=== PATIENT | female | born 1965 | race Caucasian/White ===

== ENCOUNTER 2024-03-29 13:51 | Inpatient (IN) | payer MEDICAID, MEDICARE ==
[~2024-03-29] VITALS: Ht 165.1 cm; Wt 91.8 kg
[2024-03-29 14:29] LABS: COVID AG,FIA SOURCE NASAL SWAB
[2024-03-29 14:33] LABS: BASOPHILS % (AUTO) 0.7 % (0.0-2.0); EOSINOPHILS % (AUTO) 2.5 % (1.0-6.0); HEMATOCRIT 42.1 % (36-46); HEMOGLOBIN 14.2 g/dL (12.0-16.0); LYMPHOCYTES # (AUTO) 1.8 K/uL (1.0-4.8); LYMPHOCYTES % (AUTO) 30.5 % (22.0-44.0); MEAN CORPUSCULAR HEMOGLOBIN 32.8 pg (26.0-34.0); MEAN CORPUSCULAR HGB CONC 33.6 G/dL (31.0-37.0); MEAN CORPUSCULAR VOLUME 98 fL (80-100); MONOCYTES # (AUTO) 0.3 K/uL (0.1-1.0); NEUTROPHILS # (AUTO) 3.7 K/uL (1.8-7.7); NEUTROPHILS % (AUTO) 61.3 % (40.0-70.0); PLATELET COUNT (AUTO) 243 K/uL (150-450); RED BLOOD CELL COUNT(AUTO) 4.32 MIL/uL (4.00-5.20); RED CELL DISTRIBUTION WIDTH 13.8 % (11.5-14.5)
[2024-03-29 14:39] LABS: ALCOHOL, URINE DRUG SCREEN POSITIVE (NEGATIVE); AMPHET/METH SCREEN,URINE NEGATIVE (NEGATIVE); BARBITURATE SCREEN, URINE NEGATIVE (NEGATIVE); BENZODIAZEPINES SCREEN,URINE NEGATIVE (NEGATIVE); CANNABINOID SCREEN,URINE NEGATIVE (NEGATIVE); COCAINE SCREEN,URINE NEGATIVE (NEGATIVE); METHADONE SCREEN, URINE NEGATIVE (NEGATIVE); OPIATE SCREEN,URINE NEGATIVE (NEGATIVE); PHENCYCLIDINE SCREEN,URINE NEGATIVE (NEGATIVE)
[2024-03-29 14:40] LABS: ANION GAP 11 mmol/L (8-16); CALCIUM, TOTAL 8.8 mg/dL (8.8-10.5); CARBON DIOXIDE 24 mmol/L (22-29); CHLORIDE 104 mmol/L (98-107); CREATININE 0.75 mg/dL (0.60-1.30); GLOMERULAR FILTR. RATE CALC > 60 mL/min (>60); GLUCOSE,RANDOM 95 mg/dL (70-110); POTASSIUM 3.7 mmol/L (3.5-5.1); SODIUM SERUM 139 mmol/L (136-145); UREA NITROGEN, BLOOD 8 mg/dL (7-18)
[2024-03-29 14:41] LABS: ALCOHOL, BLOOD (SERUM) 150 mg/dL (0-10)
[2024-03-29 14:59] LABS: SARS-COV2 (COVID) ANTIGEN,FIA Negative (Negative)
[2024-03-29 14:59] LABS: ALANINE AMINOTRANSFERASE 26 U/L (12-78); ALBUMIN 3.7 g/dL (3.4-5.0); ALKALINE PHOSPHATASE 137 U/L (46-116); ASPARTATE AMINOTRANSFERASE 19 U/L (15-37); BILIRUBIN,TOTAL 0.5 mg/dL (0.1-1.0); TOTAL PROTEIN, SERUM 8.3 g/dL (6.4-8.2)
[2024-03-29] MEDS ORDERED: QUEtiapine FUMARATE 100 MG TABLET PO PRN (15:30)
[2024-03-30] VITALS (8 sets, daily range): BP systolic 112–141; BP diastolic 63–89; PULSE 60–78; RESP 17–19; TEMP 96.3–98.8; O2SAT 96
[2024-03-30] MEDS: ZOLPIDEM TARTRATE 10 MG TABLET PO PRN (00:47)
[2024-03-30] MEDS ORDERED: PETROLATUM,WHITE 28 GM JELLY TP PRN (01:00)
[2024-03-30] MEDS ORDERED: OMEPRAZOLE 20 MG CAPSULE PO PRN (01:00)
[2024-03-30] MEDS ORDERED: ONDANSETRON HCL 4 MG TABLET PO PRN (01:00)
[2024-03-30] MEDS ORDERED: BENZOCAINE/MENTHOL LOZENGE PO PRN (01:00)
[2024-03-30] MEDS ORDERED: CloNIDine HCL 0.1 MG TABLET PO PRN (01:00)
[2024-03-30] MEDS ORDERED: LOPERAMIDE HCL 2 MG CAPSULE PO PRN (01:00)
[2024-03-30] MEDS ORDERED: BACITRACIN 28 GM OINTMENT TP PRN (01:00)
[2024-03-30] MEDS ORDERED: MAGNESIUM HYDROXIDE SUSPENSION 30 ML UDCUP PO PRN (01:00)
[2024-03-30] MEDS ORDERED: DOCUSATE SODIUM 100 MG CAPSULE PO PRN (01:00)
[2024-03-30] MEDS ORDERED: ALBUTEROL SULFATE HFA 90 MCG/PUFF 8 GM INHALER IH PRN (01:00)
[2024-03-30] MEDS ORDERED: ACETAMINOPHEN 325 MG TABLET PO PRN (01:00)
[2024-03-30] MEDS ORDERED: MAG HYDROX/ALUMINUM HYD/SIMETH ES 30 ML SUSPENSION UDCUP PO PRN (01:00)
[2024-03-30] MEDS: IBUPROFEN 600 MG TABLET PO PRN (01:27)
[2024-03-30] MEDS: SERTRALINE HCL 50 MG TABLET PO SCH (09:35)
[2024-03-30] MEDS: LORazepam 2 MG TABLET PO PRN (14:23)
[2024-03-31 08:21] VITALS: BP 149/76; PULSE 80; RESP 16; TEMP 98.2; O2SAT 98
[2024-03-31 08:27] LABS: CHOL/HDL RATIO 3.1 (3.9-5.7); FREE T4 (FREE THYROXINE) 0.87 ng/dL (0.76-1.46); THYROID STIMULATING HORMONE 1.44 uIU/mL (0.36-3.74)
[2024-03-31] MEDS: PERMETHRIN 5% 60 GM CREAM TP ONE (16:14)
[2024-03-31 21:31] VITALS: BP 127/60; PULSE 65; RESP 18; TEMP 97.6; O2SAT 97
[2024-04-01 08:06] VITALS: BP 130/74; PULSE 76; RESP 16; TEMP 98; O2SAT 98
[2024-04-01] MEDS ORDERED: SERT-158 PO (13:45)
== END 2024-04-01 15:30 | disposition home or self-care (01) | DRG 751 ==
LOC: EMS 13:51 → B3A 23:48
PROVIDERS: ADMIT Psychiatry & Neurology Psychiatry; ATTEND Psychiatry & Neurology Psychiatry
PROC: GZHZZZZ Group Psychotherapy (ICD-10-PCS; principal; 2024-03-30)
PROC: GZ51ZZZ Individual Psychotherapy, Behavioral (ICD-10-PCS; 2024-03-30)
DX: F33.2 Major depressive disorder, recurrent severe without psychotic features (principal); R45.851 Suicidal ideations; F10.129 Alcohol abuse with intoxication, unspecified; F17.210 Nicotine dependence, cigarettes, uncomplicated; F41.9 Anxiety disorder, unspecified; Z20.822 Contact with and (suspected) exposure to COVID-19; K59.00 Constipation, unspecified; G47.00 Insomnia, unspecified; Y90.9 Presence of alcohol in blood, level not specified; F19.10 Other psychoactive substance abuse, uncomplicated
CPT/HCPCS: 80053; 80061; 80307; 84439; 84443; 85025; G0480

== ENCOUNTER 2025-06-27 15:00 | Inpatient (IN) | payer MEDICAID ==
[~2025-06-27] VITALS: Ht 165.1 cm; Wt 78.1 kg
[~2025-06-27 15:00] MED LIST: SERT-158 PO
[2025-06-27 15:35] LABS: COVID AG,FIA SOURCE NASAL SWAB
[2025-06-27 15:42] LABS: APPEARANCE,URINE CLEAR (CLEAR); GLUCOSE, URINE (UA) NEGATIVE (NEGATIVE); LEUKOCYTE ESTERASE ,URINE NEGATIVE (NEGATIVE); NITRATE,URINE NEGATIVE (NEGATIVE); OCCULT BLOOD,URINE NEGATIVE (NEGATIVE); PH,URINE DRUG SCREEN 5.0 (5.0-8.0); SPECIFIC GRAVITIY, URINE 1.006 (1.003-1.030)
[2025-06-27] MEDS: LORazepam 2 MG/ML VIAL IM ONE (15:45)
[2025-06-27 16:24] LABS: SARS-COV2 (COVID) ANTIGEN,FIA Positive (Negative)
[2025-06-27 16:30] LABS: ALCOHOL, URINE DRUG SCREEN POSITIVE (NEGATIVE); AMPHET/METH SCREEN,URINE POSITIVE (NEGATIVE); BARBITURATE SCREEN, URINE NEGATIVE (NEGATIVE); CANNABINOID SCREEN,URINE NEGATIVE (NEGATIVE); COCAINE SCREEN,URINE NEGATIVE (NEGATIVE); METHADONE SCREEN, URINE NEGATIVE (NEGATIVE)
[2025-06-27] MEDS ORDERED: ZOLPIDEM TARTRATE 10 MG TABLET PO PRN (16:30)
[2025-06-27 17:08] LABS: PLATELET COUNT (AUTO) 271 K/uL (150-450); RED BLOOD CELL COUNT(AUTO) 4.04 MIL/uL (4.00-5.20); RED CELL DISTRIBUTION WIDTH 13.0 % (11.5-14.5); WHITE BLOOD COUNT (AUTO) 4.8 K/uL (4.5-11.0)
[2025-06-27 17:15] LABS: CALCIUM, TOTAL 8.1 mg/dL (8.8-10.5); CREATININE 0.56 mg/dL (0.60-1.30); GLOMERULAR FILTR. RATE CALC > 60 mL/min (>60); GLUCOSE,RANDOM 156 mg/dL (70-110); SODIUM SERUM 143 mmol/L (136-145); UREA NITROGEN, BLOOD 9 mg/dL (7-18)
[2025-06-27] MEDS: POTASSIUM CHLORIDE 20 MEQ ER TABLET PO ONE (19:37)
[2025-06-27] MEDS ORDERED: MAGNESIUM HYDROXIDE SUSPENSION 30 ML UDCUP PO PRN (20:45)
[2025-06-27] MEDS ORDERED: POTASSIUM CHL 10 MEQ/WATER 50 ML IV PRN (20:45)
[2025-06-27] MEDS ORDERED: ACETAMINOPHEN 325 MG TABLET PO PRN (20:45)
[2025-06-27] MEDS ORDERED: ALBUTEROL SULFATE 2.5 MG/0.5 ML NEB SOLUTION NEB PRN (20:45)
[2025-06-27] MEDS ORDERED: ZOLPIDEM TARTRATE 5 MG TABLET PO PRN (20:45)
[2025-06-27] MEDS ORDERED: IPRATROPIUM BROMIDE 0.5 MG/2.5 ML NEB SOLUTION NEB PRN (20:45)
[2025-06-27] MEDS ORDERED: ONDANSETRON HCL 4 MG/2 ML VIAL IVP PRN (20:45)
[2025-06-27] MEDS ORDERED: POTASSIUM CHLORIDE 20 MEQ ER TABLET PO PRN (20:45)
[2025-06-27] MEDS ORDERED: MORPHINE SULFATE 4 MG/ML SYRINGE IVP PRN (20:45)
[2025-06-27] MEDS ORDERED: BISACODYL 10 MG RECTAL RECTAL SUPPOSITORY PR PRN (20:45)
[2025-06-27] MEDS ORDERED: HYDROCODONE/ACETAMINOPHEN 5-325 MG TABLET PO PRN (20:45)
[2025-06-27] MEDS: DOCUSATE SODIUM 100 MG CAPSULE PO SCH (21:00)
[2025-06-27 21:30] VITALS: BP 117/73; PULSE 82; RESP 16; TEMP 97.5; O2SAT 96
[2025-06-27] MEDS: MAGNESIUM SULFATE 2 GM, MVI, ADULT NO.1 WITH VIT K 10 ML, THIAMINE 100 MG, FOLIC ACID 1... IV ONE (22:22)
[2025-06-27] MEDS: HEPARIN SODIUM,PORCINE 5,000 UNITS/ML VIAL SQ SCH (23:25)
[2025-06-28 03:00] VITALS: BP 134/69; PULSE 64; RESP 19; TEMP 97.7; O2SAT 100
[2025-06-28 07:41] LABS: PLATELET COUNT (AUTO) 262 K/uL (150-450); RED BLOOD CELL COUNT(AUTO) 4.05 MIL/uL (4.00-5.20); RED CELL DISTRIBUTION WIDTH 13.1 % (11.5-14.5); WHITE BLOOD COUNT (AUTO) 5.4 K/uL (4.5-11.0)
[2025-06-28 07:42] LABS: CALCIUM, TOTAL 8.0 mg/dL (8.8-10.5); CREATININE 0.64 mg/dL (0.60-1.30); GLOMERULAR FILTR. RATE CALC > 60 mL/min (>60); GLUCOSE,RANDOM 120 mg/dL (70-110); SODIUM SERUM 141 mmol/L (136-145); UREA NITROGEN, BLOOD 11 mg/dL (7-18)
[2025-06-28 07:49] VITALS: BP 126/67; PULSE 62; RESP 18; TEMP 98.6; O2SAT 98
[2025-06-28] MEDS: AZITHROMYCIN 500 MG TABLET PO SCH (09:32)
[2025-06-28] MEDS: SERTRALINE HCL 50 MG TABLET PO SCH (09:32)
[2025-06-28] MEDS: PANTOPRAZOLE SODIUM 40 MG DR TABLET PO SCH (09:32)
[2025-06-28 15:53] VITALS: BP 165/76; PULSE 65; RESP 18; TEMP 98.1; O2SAT 98
[2025-06-28 17:02] VITALS: BP 144/67; PULSE 61; RESP 18; TEMP 98.1; O2SAT 99
[2025-06-28 19:17] VITALS: BP 140/65; PULSE 71; RESP 18; TEMP 98.4; O2SAT 97
[2025-06-29 04:36] VITALS: BP 149/69; PULSE 58; RESP 18; TEMP 98.4; O2SAT 99
[2025-06-29 07:11] VITALS: BP 150/78; PULSE 63; RESP 18; TEMP 98.2; O2SAT 99
[2025-06-29 07:12] LABS: PLATELET COUNT (AUTO) 251 K/uL (150-450); RED BLOOD CELL COUNT(AUTO) 4.21 MIL/uL (4.00-5.20); RED CELL DISTRIBUTION WIDTH 13.2 % (11.5-14.5); WHITE BLOOD COUNT (AUTO) 5.2 K/uL (4.5-11.0)
[2025-06-29 07:30] LABS: CALCIUM, TOTAL 8.5 mg/dL (8.8-10.5); CREATININE 0.73 mg/dL (0.60-1.30); GLOMERULAR FILTR. RATE CALC > 60 mL/min (>60); GLUCOSE,RANDOM 108 mg/dL (70-110); SODIUM SERUM 138 mmol/L (136-145); UREA NITROGEN, BLOOD 7 mg/dL (7-18)
[2025-06-29 10:32] LABS: COVID AG,FIA SOURCE NASAL SWAB
[2025-06-29 10:53] LABS: SARS-COV2 (COVID) ANTIGEN,FIA Negative (Negative)
[2025-06-29 15:33] VITALS: BP 140/87; PULSE 67; RESP 18; TEMP 98.4; O2SAT 100
== END 2025-06-29 17:17 | DRG 52 ==
LOC: EMS 15:00 → EDBEDREQTM 16:33 → EDBEDREQSVC 16:33 → EDBEDREQ 16:33 → EDH 17:02 → 4E 21:50
PROVIDERS: ADMIT Internal Medicine; ATTEND Internal Medicine
DX: G92.8 Other toxic encephalopathy (principal); R45.851 Suicidal ideations; F10.229 Alcohol dependence with intoxication, unspecified; F32.9 Major depressive disorder, single episode, unspecified; E87.6 Hypokalemia; U07.1 COVID-19; R73.9 Hyperglycemia, unspecified; F17.200 Nicotine dependence, unspecified, uncomplicated; F20.9 Schizophrenia, unspecified; F15.10 Other stimulant abuse, uncomplicated; Y90.6 Blood alcohol level of 120-199 mg/100 ml; Z78.9 Other specified health status
CPT/HCPCS: 80048; 80307; 81003; 85025; 99285; G0378; G0480; J1200; J1630; J1644; J2060; J3411; J3475; J3490; J7030

== ENCOUNTER 2025-06-29 08:07 | Inpatient (IN) | payer MEDICAID ==
[~2025-06-29] VITALS: Ht 165.1 cm; Wt 77.2 kg
[2025-06-29] MEDS ORDERED: IBUPROFEN 400 MG TABLET PO PRN ×2 (16:45→17:30)
[2025-06-29] MEDS ORDERED: ACETAMINOPHEN 325 MG TABLET PO PRN ×2 (16:45→17:30)
[2025-06-29] MEDS ORDERED: LOPERAMIDE HCL 2 MG CAPSULE PO PRN ×2 (16:45→17:30)
[2025-06-29] MEDS ORDERED: MAGNESIUM HYDROXIDE SUSPENSION 30 ML UDCUP PO PRN ×2 (16:45→17:30)
[2025-06-29] MEDS ORDERED: NICOTINE 14 MG/24 HOUR PATCH TD PRN ×2 (16:45→17:30)
[2025-06-29] MEDS ORDERED: GuaiFENesin/D-METHORPHAN [SUGAR-FREE] 200-20MG/10 ML SYRUP UDCUP PO PRN ×2 (16:45→17:30)
[2025-06-29] MEDS ORDERED: MAG HYDROX/ALUMINUM HYD/SIMETH ES 30 ML SUSPENSION UDCUP PO PRN ×2 (16:45→17:30)
[2025-06-29] MEDS ORDERED: ALBUTEROL SULFATE HFA 90 MCG/PUFF 8 GM INHALER IH PRN ×2 (16:45→17:30)
[2025-06-29] MEDS ORDERED: DOCUSATE SODIUM 100 MG CAPSULE PO PRN ×2 (16:45→17:30)
[2025-06-29] MEDS ORDERED: PETROLATUM,WHITE 28 GM JELLY TP PRN ×2 (16:45→17:30)
[2025-06-29] MEDS ORDERED: ONDANSETRON 4 MG TABLET PO PRN ×2 (16:45→17:30)
[2025-06-29 18:10] VITALS: BP 139/75; PULSE 71; RESP 17; TEMP 97.8; O2SAT 98
[2025-06-29 20:09] VITALS: BP 147/81; PULSE 67; RESP 18; TEMP 96.8; O2SAT 95
[2025-06-29] MEDS: ZOLPIDEM TARTRATE 10 MG TABLET PO PRN (21:06)
[2025-06-30 06:31] LABS: PLATELET COUNT (AUTO) 256 K/uL (150-450); RED BLOOD CELL COUNT(AUTO) 4.28 MIL/uL (4.00-5.20); RED CELL DISTRIBUTION WIDTH 13.0 % (11.5-14.5); WHITE BLOOD COUNT (AUTO) 4.8 K/uL (4.5-11.0)
[2025-06-30 06:51] LABS: CHOL/HDL RATIO 3.5 (3.9-5.7); LDL CHOL (CALC.) 100.0 mg/dL (0-130)
[2025-06-30 06:58] LABS: ASPARTATE AMINOTRANSFERASE 20 U/L (15-37); CALCIUM, TOTAL 8.5 mg/dL (8.8-10.5); CREATININE 0.44 mg/dL (0.60-1.30); GLOMERULAR FILTR. RATE CALC > 60 mL/min (>60); GLUCOSE,RANDOM 98 mg/dL (70-110); SODIUM SERUM 138 mmol/L (136-145); TOTAL PROTEIN, SERUM 7.2 g/dL (6.4-8.2); UREA NITROGEN, BLOOD 12 mg/dL (7-18)
[2025-06-30 08:49] VITALS: BP 144/81; PULSE 81; RESP 16; TEMP 97.8; O2SAT 96
[2025-06-30] MEDS: SERTRALINE HCL 50 MG TABLET PO SCH (09:02)
[2025-06-30 20:00] VITALS: BP 116/57; PULSE 68; RESP 18; TEMP 97.6; O2SAT 95
[2025-07-01 09:28] VITALS: BP 115/79; PULSE 89; RESP 18; TEMP 97.9; O2SAT 95
[2025-07-01 13:03] LABS: APPEARANCE,URINE HAZY (CLEAR); GLUCOSE, URINE (UA) NEGATIVE (NEGATIVE); LEUKOCYTE ESTERASE ,URINE TRACE (NEGATIVE); NITRATE,URINE NEGATIVE (NEGATIVE); OCCULT BLOOD,URINE NEGATIVE (NEGATIVE); PH,URINE DRUG SCREEN 5.5 (5.0-8.0); SPECIFIC GRAVITIY, URINE 1.024 (1.003-1.030)
[2025-07-01 13:11] LABS: ALCOHOL, URINE DRUG SCREEN NEGATIVE (NEGATIVE); AMPHET/METH SCREEN,URINE NEGATIVE (NEGATIVE); BARBITURATE SCREEN, URINE NEGATIVE (NEGATIVE); CANNABINOID SCREEN,URINE NEGATIVE (NEGATIVE); COCAINE SCREEN,URINE NEGATIVE (NEGATIVE); METHADONE SCREEN, URINE NEGATIVE (NEGATIVE)
[2025-07-01 13:19] LABS: SQUAMOUS EPITHELIAL CELL,UR Many /LPF (None Seen)
[2025-07-01 20:47] VITALS: BP 129/76; PULSE 86; RESP 19; TEMP 98; O2SAT 99
[2025-07-02 12:38] VITALS: BP 128/57; PULSE 83; RESP 18; TEMP 97.9; O2SAT 98
== END 2025-07-02 15:30 | disposition home or self-care (01) | DRG 761 ==
LOC: 3EI 16:47
PROVIDERS: ADMIT Psychiatry & Neurology Psychiatry; ATTEND Psychiatry & Neurology Psychiatry
DX: F25.9 Schizoaffective disorder, unspecified (principal); F10.90 Alcohol use, unspecified, uncomplicated; F15.90 Other stimulant use, unspecified, uncomplicated; F41.9 Anxiety disorder, unspecified; G47.00 Insomnia, unspecified; Y90.8 Blood alcohol level of 240 mg/100 ml or more; K59.00 Constipation, unspecified; J98.8 Other specified respiratory disorders; Z72.0 Tobacco use; Z79.899 Other long term (current) drug therapy
CPT/HCPCS: 80053; 80061; 80307; 81001; 83036; 84443; 85025; 87086